=== PATIENT | male | born 1940 | race Caucasian/White ===

== ENCOUNTER → 2016-07-29 | Day surgery (SDC) | payer MEDICARE, BC ==
[~2016-07-29] MED LIST: ASPI-630 PO; FAMO-63 PO; IV RINGERS,LACTATED 1000ML 1,000 ML IV SCH; LIDOCAINE 1% 1 ML SYRINGE. ID PRN; LIDOCAINE 2% PF Vial for OR 5 ML VIAL. ONE; METO25TA9 PO; MIDAZOLAM HCL/PF 2 MG/2 ML VIAL. IV PRN; PROPOFOL 40 ML IV ONE; fentaNYL PF VIAL 100 MCG/2 ML VIAL IV PRN
--- NOTE | 2016-07-29 08:26 | PDOC1 ---
HISTORY & PHYSICAL H&P Ishmael Wallace [id number] 1940 05/21/2016 02:30 PM 02/[address] [facility], [facility] OUR PATIENTS COME FIRST [address] [place], [place] [id number] Ph. [phone] Patient: Ishmael Wallace Date of : 1940 Date: 05/21/2016 2:30 PM Visit Type: Consult This 76 year old male presents for H/o colorectal polyp. History of Present Illness: 1. H/o colorectal polyp Prior screening: colonoscopy. Risk Factors: h/o colon polyp. Pertinent negatives include abdominal pain, change in bowel habits, change in stool caliber, constipation, decreased appetite, diarrhea, melena, nausea, rectal bleeding, vomiting, weight gain and weight loss. Additional information: No family history of colon cancer, No family history of Crohn's/colitis and No NSAID/ASA use. INTAKE COMMENTS: Intake Comments: Nurse Note: the pt is here today to schedule a colonoscopy due to having colon polyps in 2012. PROBLEM LIST: Problem Description Onset Date Acquired hypothyroidism 10/19/2015 Encounter for Medicare annual wellness exam 10/17/2015 Benign essential hypertension 12/14/2009 Chronic obstructive lung disease 12/14/2009 Anemia 12/14/2009 Benign prostatic hyperplasia 12/14/2009 PAST MEDICAL/SURGICAL HISTORY (Detailed) Disease/disorder Onset Date Management Date Comments Transurethral resection of the prostate Cholecystectomy 2002 eye surgery colonoscopy 08/05/2001 Abnormality of gait Benign prostatic hyperplasia Colonic polyps colonoscopy with biopsy 06/16/2013 Colonic polyps-tubular adenoma colonoscopy with polypectomy 07/30/2006 COPD Gastroesophageal reflux disease Grade 2 internal hemorrhoids 06/16/2013 Hyperlipidemia Hypertension Lactose deficiency Sinusitis DIAGNOSTICS HISTORY: Test Ordered Interpretation Result completed Colonoscopy 08/02/2009 Abnormal Internal hemorroids. 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 11/30/2009 EKG 01/04/2008 Borderline , no acute changes from 11/05/05 01/04/2008 Exercise Stress Test 12/05/2005 Normal LVEF 61% 12/05/2005 Stress Test 12/05/2005 Normal 12/05/2005 ELECTROCARDIOGRAM, COMPLETE 11/03/2011 no significant change c/w prior EKG 11/2011 Colonoscopy 05/25/2013 abnormal Imp: Grade 2 internal hemorrhoids, polyps as a distance between 2cm and 5 cm in the cecum(bx), polyp in the hepatic flexure(bx) , polyp in the transverse colon(bx), BX: Tubular adenoma, tubular adenoma, hyperplastic polyp 06/16/2013 Test Ordered Ordering Comments Modifier Colonoscopy 08/02/[address] HEAD/BRAIN W/O & W/DYE 11/30/2009 Diagnostic Images EKG 01/04/2008 Cardiac Studies Exercise Stress Test 12/05/2005 Cardiac Studies Stress Test 12/05/2005 Cardiac Studies ELECTROCARDIOGRAM, COMPLETE 11/03/2011 Colonoscopy 05/25/2013 Medications (Active): Started Medication Directions Instruction Stopped 12/14/2009 Aspir-81 81 mg Tab take 1 tablet (81MG) by ORAL route every day 05/14/2016 Bactroban 2 % topical ointment apply by topical route 2 times every day a small amount to the affected area 05/14/2016 Centrum Silver Ultra Men's 300 mcg-600 mcg-300 mcg tablet take 1 tab daily 03/27/2016 COMBIVENT RESPIMAT AER INHALE ONE PUFF BY MOUTH 4 TIMES DAILY 10/17/2014 FiberCon 625 mg tablet take one tablet two times daily 05/14/2016 iron 325 mg (65 mg iron) tablet take 1 tablet by ORAL route every day 05/14/2016 Keflex 500 mg capsule take 1 capsule by oral route qid for 7 day 01/28/2016 LEVOTHYROXIN 25MCG TAB TAKE ONE TABLET BY MOUTH ONCE DAILY 02/15/2016 METOPROLOL 25MG ER TAB TAKE ONE TABLET BY MOUTH ONCE DAILY 05/03/2012 Pepcid AC 20 mg Tab one tablet by mouth daily 04/20/2015 ProAir HFA 90 mcg/actuation aerosol inhaler 2 puff four times daily as needed 12/21/2015 PULMICORT 90MCG FLX INH INHALE TWO PUFFS BY MOUTH TWICE DAILY Allergies: Ingredient Reaction Medication Name Comment NO KNOWN ALLERGIES REVIEW OF SYSTEMS System Neg/Pos Details Constitutional Negative Chills, fever, malaise, weight gain and weight loss. ENMT Negative Sore throat. Eyes Negative Double vision. Respiratory Negative Dyspnea and wheezing. Cardio Negative Chest pain and irregular heartbeat/palpitations. GI Positive See HPI. GI Negative Abdominal pain, change in bowel habits, change in stool caliber, constipation, decreased appetite, diarrhea, melena, nausea, see HPI, rectal bleeding and vomiting. Negative Dysuria and hematuria. Endocrine Negative Cold intolerance and heat intolerance. Psych Negative Anxiety. Integumentary Negative Hives and rash. MS Negative Joint pain. Yan/Lymph Negative Easy bleeding and easy bruising. Allergic/Immuno Negative Food allergies. VITAL SIGNS Time BP mm/Hg Pulse /min Resp /min Temp F Ht ft Ht in Ht cm Wt lb Wt kg BMI kg/ m2 BSA m2 O2 Sat% 2:31 PM 120/60 70 97.0 5.0 11.00 180.34 178.00 80.739 24.83 98 Time Measured by 2:31 PM Conchita Phillips PHYSICAL EXAM: Exam Findings Details Constitutional Normal Well developed. Eyes Normal Conjunctiva - Right: Normal, Left: Normal. Sclera - Right: Normal, Left: Normal. Nasopharynx Normal Lips/teeth/gums - Normal. Neck Exam Normal Inspection - Normal. Thyroid gland - Normal. Respiratory Normal Inspection - Normal. Auscultation - Normal. Cardiovascular Normal Regular rate and rhythm. No murmurs, gallops, or rubs. Vascular Normal Pulses - Carotids: Normal, Femoral: Normal, Dorsalis pedis: Normal. Abdomen Normal Inspection - Normal. Anterior palpation - No guarding. No abdominal tenderness. No hepatic enlargement. No splenic enlargement. No hernia. No ascites. Skin Normal Inspection - Normal. Extremity Normal No edema. Psychiatric * Oriented to time, place, person and situation. Psychiatric Normal Appropriate mood and effect. The patient was checked out at 3:01 PM by Conchita Phillips. Assessment/Plan # Detail Type Description 1. Assessment History of colon polyps (Z86.010). Patient Plan schedule colonoscopy at [facility] Plan Orders Further diagnostic evaluations ordered today include(s) Colonoscopy to be performed today. He is to schedule a follow-up visit with Yashira Montana MD upon completion of work-up Electronically signed by: Yashira Montana MD 05/21/2016 03:07 PM Document generated by: Yashira Montana 05/21/2016 03:07 PM Ariadne Flanagan MD, Family Practice; Paul Nuñez MD Internal Medicine; Ollie Schreiber MD, Internal Medicine; Beulah Montana MD Internal Medicine; Yashira Montana MD, Gastroenterology; Ag Mota MD, Rheumatology, [facility], [facility] Meryl Cruz APRN ------ 07/29/16 Patient seen and examined. No change in H&P. YASHIRA MONTANA MD Jul 29, 2016 08:26
--- NOTE | 2016-07-29 10:55 | PDOC4 ---
GI OP Report - Dr. Barrera Date/Time DATE: 07/29/16 TIME: 10:54 Attending Physician Zion Barrera MD Referring Physician Indications Personal history of colonic polyps Pre-Op See the Anesthesia note for documentation of the administered medications Procedures Colonoscopy Findings - Internal hemorrhoids. - The examination was otherwise normal on direct and retroflexion views. - No specimens collected. Plan - Discharge patient to home. - Patient has a contact number available for emergencies. The signs and symptoms of potential delayed complications were discussed with the patient. Return to normal activities tomorrow. Written discharge instructions were provided to the patient. - Resume regular diet. - Continue present medications. - No repeat colonoscopy due to age. - Return to my office as needed. ZION BARRERA MD Jul 29, 2016 10:55
[2016-07-29 11:22] VITALS: BP 158/76
== END | disposition home or self-care (01) ==
LOC: SURG 08:21
PROVIDERS: ATTEND Internal Medicine Gastroenterology
DX: Z09 Encounter for follow-up examination after completed treatment for conditions other than malignant neoplasm (principal); Z87.19 Personal history of other diseases of the digestive system; K64.1 Second degree hemorrhoids; J44.9 Chronic obstructive pulmonary disease, unspecified; I10 Essential (primary) hypertension; E78.5 Hyperlipidemia, unspecified; E03.9 Hypothyroidism, unspecified
CPT/HCPCS: 45378; J2704